=== PATIENT | male | born 1965 | race Caucasian/White ===

== ENCOUNTER 2022-09-28 18:42 | Inpatient (IN) | payer MEDICAID ==
[~2022-09-28] VITALS: Ht 167.6 cm; Wt 84.2 kg
[2022-09-28 20:26] LABS: Basophils # (auto) 0.1 10 ^3/uL (0-0.2); Basophils % (auto) 0.3 % (0.0-2.0); Eosinophils # (auto) 0.1 10 ^3/uL (0-0.8); Eosinophils % (auto) 0.4 % (0.0-7.0); Lymphocytes # (auto) 1.2 10 ^3/uL (0.4-5.4); Lymphocytes % (auto) 7.6 % (10.0-50.0); Mean Corpuscular Hemoglobin 30.2 pg (28.0-32.0); Mean Corpuscular Hgb Conc. 33.4 g/dL (32.0-36.0); Mean Corpuscular Volume 90.6 fL (80.0-100.0); Monocytes % (auto) 6.4 % (0.0-12.0); Neutrophils % (auto) 85.3 % (37.0-80.0); Nucleated Red Blood Cells % 0.2 %; White Blood Cell 16.4 10^3/uL (4.4-10.8)
[2022-09-28 20:40] LABS: INR 1.05 (0.9-1.15); Partial Thromboplastin Time 28.2 sec (24.6-33.4)
[2022-09-28 20:47] LABS: Albumin 3.7 g/dL (3.4-5.0); BUN/Creatinine Ratio 15.6; Calcium 8.6 mg/dL (8.5-10.1); Potassium 4.7 mmol/L (3.5-5.1)
[2022-09-28 20:50] LABS: Bilirubin, Total 0.5 mg/dL (0.2-1.0); Total Protein 6.8 g/dL (6.4-8.2)
[2022-09-29] MEDS ORDERED: MORPHINE SULFATE 4 MG/ML SYR/VIAL IV ONE (01:00)
[2022-09-29] MEDS ORDERED: ONDANSETRON HCL 4 MG/2 ML VIAL IV ONE (01:00)
[2022-09-29] MEDS ORDERED: ENOXAPARIN SOD 100 MG/1 ML SYRINGE SC ONE (01:15)
[2022-09-29] MEDS ORDERED: NITROGLYCERIN 0.4 MG SL TAB SL PRN (01:15)
[2022-09-29] MEDS ORDERED: ONDANSETRON HCL 4 MG/2 ML VIAL IV PRN (01:15)
[2022-09-29] MEDS ORDERED: TEMAZEPAM 15 MG CAP PO PRN (01:15)
[2022-09-29] MEDS ORDERED: IOHEXOL 350 MG/ML 100ML IJ ONE (07:40)
[2022-09-29] MEDS ORDERED: ENOXAPARIN SOD 80 MG/0.8ML SYRINGE SC SCH (10:00)
[2022-09-29] MEDS ORDERED: ASPirin 81 mg TAB PO SCH (10:00)
[2022-09-29] MEDS ORDERED: LISINOPRIL 5 MG TAB PO SCH (10:00)
[2022-09-29] MEDS: PANTOPRAZOLE 40 MG TAB PO SCH (10:42)
[2022-09-29] MEDS: ACETAMINOPHEN 325 MG TAB PO PRN (12:46)
[2022-09-29] MEDS ORDERED: CLOPIDOGREL BISULFATE 75 MG TAB PO ONE (13:15)
[2022-09-29] MEDS: ATORVASTATIN 20 MG TAB PO SCH ×2 (13:40→21:36)
[2022-09-29] MEDS ORDERED: LISINOPRIL 10 MG TAB PO ONE (15:45)
[2022-09-29 21:00] VITALS: BP 131/80
[2022-09-29] MEDS: CARVEDILOL 12.5 MG TAB PO SCH (21:28)
[2022-09-29] MEDS ORDERED: ENOXAPARIN SOD 40 MG/0.4 ML SYRINGE SC SCH (22:00)
[2022-09-29] MEDS ORDERED: APIXABAN 5 MG TAB PO SCH (22:00)
[2022-09-29] MEDS ORDERED: ATORVASTATIN 20 MG TAB PO SCH (22:00)
[2022-09-29 22:09] VITALS: BP 131/80
[2022-09-30] MEDS: HYDROcodone-ACET 10/325MG TAB PO PRN ×3 (00:27→20:28)
[2022-09-30 04:46] VITALS: BP 101/60
[2022-09-30 05:31] LABS: Urine Bacteria FEW /hpf (None Seen); Urine Blood Negative /uL (Negative); Urine Mucus FEW (None Seen); Urine WBC 1 /hpf (0 - 3)
[2022-09-30 05:49] LABS: Amphetamine Screen, Urine NEGATIVE (NEGATIVE); Barbiturate Scree,Urine NEGATIVE (NEGATIVE); Benzodiazephine Screen, Urine NEGATIVE (NEGATIVE); Cannabinoid Screen, Urine NEGATIVE (NEGATIVE); Cocaine Screen, Urine NEGATIVE (NEGATIVE); Opiate Scree,Urine POSITIVE (NEGATIVE); Phencyclidine Screen, Urine NEGATIVE (NEGATIVE)
[2022-09-30 06:04] LABS: Basophils # (auto) 0 10 ^3/uL (0-0.2); Basophils % (auto) 0.1 % (0.0-2.0); Eosinophils # (auto) 0.1 10 ^3/uL (0-0.8); Eosinophils % (auto) 0.5 % (0.0-7.0); Hematocrit 44.6 % (41.0-53.0); Hemoglobin 15.1 g/dL (13.5-17.5); Lymphocytes # (auto) 1.5 10 ^3/uL (0.4-5.4); Lymphocytes % (auto) 9.7 % (10.0-50.0); Mean Corpuscular Hemoglobin 30.8 pg (28.0-32.0); Mean Corpuscular Hgb Conc. 33.8 g/dL (32.0-36.0); Mean Corpuscular Volume 91.1 fL (80.0-100.0); Monocytes # (auto) 1.4 10 ^3/uL (0-1.3); Neutrophils # (auto) 12.3 10 ^3/uL (1.6-8.6); Neutrophils % (auto) 80.7 % (37.0-80.0); Red Cell Distribution Width 14.1 % (11.8-14.3); White Blood Cell 15.3 10^3/uL (4.4-10.8)
[2022-09-30] MEDS: EMPAGLIFLOZIN 10 MG TAB PO SCH (06:13)
[2022-09-30 06:27] LABS: Calcium 8.2 mg/dL (8.5-10.1); Potassium 5.2 mmol/L (3.5-5.1)
[2022-09-30 06:33] LABS: BUN/Creatinine Ratio 17.7
[2022-09-30 09:00] VITALS: BP 107/71
[2022-09-30] MEDS ORDERED: GADOTERATE MEG 10 MMOL/20ml INJ (0.5MMOL/ml) IV ONE (09:47)
[2022-09-30] MEDS ORDERED: ASPirin 81 mg TAB PO SCH (10:00)
[2022-09-30] MEDS ORDERED: CLOPIDOGREL BISULFATE 75 MG TAB PO SCH (10:00)
[2022-09-30] MEDS ORDERED: LISINOPRIL 10 MG TAB PO SCH (10:00)
[2022-09-30] MEDS: PANTOPRAZOLE 40 MG TAB PO SCH (10:07)
[2022-09-30] MEDS: LOSARTAN POTASSIUM 25 MG TAB PO SCH (10:08)
[2022-09-30] MEDS: ENOXAPARIN SOD 100 MG/1 ML SYRINGE SC SCH ×2 (10:09→21:32)
[2022-09-30] MEDS: CARVEDILOL 12.5 MG TAB PO SCH ×2 (10:09→21:32)
[2022-09-30 13:00] VITALS: BP 119/67
[2022-09-30] MEDS ORDERED: SENNA 8.6 MG TAB PO PRN (15:45)
[2022-09-30] MEDS ORDERED: POLYETHYLENE GLYCOL 17 GM PWDR PO PRN (15:45)
[2022-09-30 17:00] VITALS: BP 107/70
[2022-09-30] MEDS: ACETAMINOPHEN 325 MG TAB PO PRN (21:30)
[2022-09-30] MEDS: SENNA 8.6 MG TAB PO SCH (21:31)
[2022-09-30] MEDS: ATORVASTATIN 20 MG TAB PO SCH (21:31)
[2022-09-30 22:00] VITALS: BP 136/76
[2022-10-01 05:00] VITALS: BP 103/71
[2022-10-01 05:39] LABS: Basophils # (auto) 0 10 ^3/uL (0-0.2); Basophils % (auto) 0.3 % (0.0-2.0); Eosinophils # (auto) 0.1 10 ^3/uL (0-0.8); Eosinophils % (auto) 1.1 % (0.0-7.0); Hematocrit 48.4 % (41.0-53.0); Hemoglobin 16.2 g/dL (13.5-17.5); Lymphocytes # (auto) 2.7 10 ^3/uL (0.4-5.4); Lymphocytes % (auto) 19.5 % (10.0-50.0); Mean Corpuscular Hemoglobin 30.8 pg (28.0-32.0); Mean Corpuscular Hgb Conc. 33.4 g/dL (32.0-36.0); Mean Corpuscular Volume 92.3 fL (80.0-100.0); Monocytes # (auto) 1.5 10 ^3/uL (0-1.3); Neutrophils # (auto) 9.4 10 ^3/uL (1.6-8.6); Neutrophils % (auto) 68.1 % (37.0-80.0); Nucleated Red Blood Cells % 0.2 %; Red Blood Cells 5.24 10^6/uL (4.5-5.90); Red Cell Distribution Width 14.1 % (11.8-14.3); White Blood Cell 13.7 10^3/uL (4.4-10.8)
[2022-10-01 05:52] LABS: Potassium 4.6 mmol/L (3.5-5.1)
[2022-10-01 05:58] LABS: BUN/Creatinine Ratio 17.6; Calcium 8.4 mg/dL (8.5-10.1)
[2022-10-01] MEDS: EMPAGLIFLOZIN 10 MG TAB PO SCH (06:33)
[2022-10-01] MEDS: HYDROcodone-ACET 10/325MG TAB PO PRN ×2 (06:34→10:48)
[2022-10-01 08:00] VITALS: BP 116/75
[2022-10-01 08:37] VITALS: BP 116/75
[2022-10-01] MEDS: ENOXAPARIN SOD 100 MG/1 ML SYRINGE SC SCH ×2 (10:47→22:05)
[2022-10-01] MEDS: CARVEDILOL 12.5 MG TAB PO SCH ×2 (10:48→22:05)
[2022-10-01] MEDS: PANTOPRAZOLE 40 MG TAB PO SCH (10:49)
[2022-10-01] MEDS: POLYETHYLENE GLYCOL 17 GM PWDR PO SCH (10:49)
[2022-10-01] MEDS: LOSARTAN POTASSIUM 25 MG TAB PO SCH (10:49)
[2022-10-01 17:00] VITALS: BP 120/81
[2022-10-01] MEDS: ACETAMINOPHEN 325 MG TAB PO PRN (21:36)
[2022-10-01 22:00] VITALS: BP 122/77
[2022-10-01] MEDS: SENNA 8.6 MG TAB PO SCH (22:00)
[2022-10-01] MEDS: ATORVASTATIN 20 MG TAB PO SCH (22:05)
[2022-10-02 05:00] VITALS: BP 109/73
[2022-10-02] MEDS: EMPAGLIFLOZIN 10 MG TAB PO SCH (06:46)
[2022-10-02 07:17] LABS: Basophils # (auto) 0.1 10 ^3/uL (0-0.2); Basophils % (auto) 0.4 % (0.0-2.0); Eosinophils # (auto) 0.2 10 ^3/uL (0-0.8); Eosinophils % (auto) 1.1 % (0.0-7.0); Hematocrit 48.2 % (41.0-53.0); Hemoglobin 16.2 g/dL (13.5-17.5); Lymphocytes # (auto) 1.9 10 ^3/uL (0.4-5.4); Lymphocytes % (auto) 12.8 % (10.0-50.0); Mean Corpuscular Hemoglobin 30.4 pg (28.0-32.0); Mean Corpuscular Hgb Conc. 33.7 g/dL (32.0-36.0); Mean Corpuscular Volume 90.2 fL (80.0-100.0); Monocytes # (auto) 1.7 10 ^3/uL (0-1.3); Monocytes % (auto) 11.6 % (0.0-12.0); Neutrophils # (auto) 10.8 10 ^3/uL (1.6-8.6); Neutrophils % (auto) 74.1 % (37.0-80.0); Red Blood Cells 5.34 10^6/uL (4.5-5.90); White Blood Cell 14.5 10^3/uL (4.4-10.8)
[2022-10-02 07:21] LABS: Potassium 4.7 mmol/L (3.5-5.1)
[2022-10-02 07:37] LABS: BUN/Creatinine Ratio 18.9; Calcium 8.6 mg/dL (8.5-10.1)
[2022-10-02 08:00] VITALS: BP 109/72
[2022-10-02] MEDS: CARVEDILOL 12.5 MG TAB PO SCH ×2 (11:44→20:54)
[2022-10-02] MEDS: LOSARTAN POTASSIUM 25 MG TAB PO SCH (11:45)
[2022-10-02] MEDS: POLYETHYLENE GLYCOL 17 GM PWDR PO SCH (11:45)
[2022-10-02] MEDS: PANTOPRAZOLE 40 MG TAB PO SCH (11:46)
[2022-10-02] MEDS: ENOXAPARIN SOD 100 MG/1 ML SYRINGE SC SCH ×2 (11:46→22:49)
[2022-10-02 12:00] VITALS: BP 110/67
[2022-10-02] MEDS ORDERED: LORazepam 2MG/ML-1ML VIAL IV PRN (13:15)
[2022-10-02] MEDS ORDERED: NIFEdipine ER 30 MG TAB PO SCH (13:15)
[2022-10-02 16:00] VITALS: BP 104/56
[2022-10-02] MEDS: HYDROcodone-ACET 10/325MG TAB PO PRN (19:36)
[2022-10-02 22:00] VITALS: BP 101/63
[2022-10-02] MEDS: ATORVASTATIN 20 MG TAB PO SCH (22:49)
[2022-10-02] MEDS: SENNA 8.6 MG TAB PO SCH (22:49)
[2022-10-03 05:00] VITALS: BP 106/68
[2022-10-03 05:28] LABS: Basophils # (auto) 0.1 10 ^3/uL (0-0.2); Basophils % (auto) 0.5 % (0.0-2.0); Eosinophils # (auto) 0.2 10 ^3/uL (0-0.8); Eosinophils % (auto) 1.8 % (0.0-7.0); Hematocrit 45.2 % (41.0-53.0); Lymphocytes # (auto) 2.1 10 ^3/uL (0.4-5.4); Mean Corpuscular Hgb Conc. 33.2 g/dL (32.0-36.0); Mean Corpuscular Volume 90.3 fL (80.0-100.0); Monocytes # (auto) 1.5 10 ^3/uL (0-1.3); Monocytes % (auto) 11.5 % (0.0-12.0); Neutrophils # (auto) 8.8 10 ^3/uL (1.6-8.6); Neutrophils % (auto) 69.2 % (37.0-80.0); Nucleated Red Blood Cells % 0.1 %; Red Blood Cells 5.01 10^6/uL (4.5-5.90); Red Cell Distribution Width 13.9 % (11.8-14.3); White Blood Cell 12.6 10^3/uL (4.4-10.8)
[2022-10-03 05:43] LABS: BUN/Creatinine Ratio 20.3; Calcium 8.4 mg/dL (8.5-10.1); INR 1.11 (0.9-1.15); Partial Thromboplastin Time 40.4 sec (24.6-33.4); Potassium 4.8 mmol/L (3.5-5.1)
[2022-10-03] MEDS: EMPAGLIFLOZIN 10 MG TAB PO SCH (07:00)
[2022-10-03 08:00] VITALS: BP 114/68
[2022-10-03 08:15] VITALS: BP 114/68
[2022-10-03] MEDS: CARVEDILOL 12.5 MG TAB PO SCH ×2 (10:00→22:18)
[2022-10-03] MEDS: PANTOPRAZOLE 40 MG TAB PO SCH (10:00)
[2022-10-03] MEDS: LOSARTAN POTASSIUM 25 MG TAB PO SCH (10:00)
[2022-10-03] MEDS: POLYETHYLENE GLYCOL 17 GM PWDR PO SCH (10:00)
[2022-10-03 12:00] VITALS: BP 116/74
[2022-10-03] MEDS ORDERED: HEPARIN SODIUM (PORCINE) 5000 UNITS/ML 1ML VIAL IV ONE (12:00)
[2022-10-03] MEDS: MORPHINE SULFATE INJ 2 MG/ml SYRG IV PRN (14:33)
[2022-10-03 16:00] VITALS: BP 115/87
[2022-10-03] MEDS: HEPARIN DRIP/D5W 100UNITS/ML 250 ML IV SCH (18:23)
[2022-10-03 22:00] VITALS: BP 116/77
[2022-10-03] MEDS: SENNA 8.6 MG TAB PO SCH (22:00)
[2022-10-03] MEDS: ATORVASTATIN 20 MG TAB PO SCH (22:18)
[2022-10-04 00:48] LABS: INR 1.12 (0.9-1.15)
[2022-10-04 00:56] LABS: Partial Thromboplastin Time 74.7 sec (24.6-33.4)
[2022-10-04] MEDS: HEPARIN DRIP/D5W 100UNITS/ML 250 ML IV SCH ×3 (00:57→16:50)
[2022-10-04 05:00] VITALS: BP 120/57
[2022-10-04] MEDS: EMPAGLIFLOZIN 10 MG TAB PO SCH (05:24)
[2022-10-04 05:40] LABS: Basophils # (auto) 0.1 10 ^3/uL (0-0.2); Basophils % (auto) 0.5 % (0.0-2.0); Eosinophils # (auto) 0.3 10 ^3/uL (0-0.8); Eosinophils % (auto) 1.9 % (0.0-7.0); Hematocrit 45.7 % (41.0-53.0); Hemoglobin 15.4 g/dL (13.5-17.5); Lymphocytes % (auto) 14.9 % (10.0-50.0); Mean Corpuscular Hemoglobin 30.3 pg (28.0-32.0); Mean Corpuscular Hgb Conc. 33.8 g/dL (32.0-36.0); Mean Corpuscular Volume 89.8 fL (80.0-100.0); Monocytes # (auto) 1.4 10 ^3/uL (0-1.3); Monocytes % (auto) 10.3 % (0.0-12.0); Neutrophils # (auto) 9.6 10 ^3/uL (1.6-8.6); Neutrophils % (auto) 72.4 % (37.0-80.0); Nucleated Red Blood Cells % 0.1 %; Red Blood Cells 5.08 10^6/uL (4.5-5.90); Red Cell Distribution Width 13.8 % (11.8-14.3); White Blood Cell 13.2 10^3/uL (4.4-10.8)
[2022-10-04 05:51] LABS: INR 1.11 (0.9-1.15); Partial Thromboplastin Time 59.2 sec (24.6-33.4)
[2022-10-04 05:57] LABS: Calcium 8.7 mg/dL (8.5-10.1); Potassium 5.2 mmol/L (3.5-5.1)
[2022-10-04 06:04] LABS: BUN/Creatinine Ratio 19.5
[2022-10-04 07:48] VITALS: BP 109/70
[2022-10-04 09:00] VITALS: BP 109/70
[2022-10-04] MEDS: CARVEDILOL 12.5 MG TAB PO SCH ×2 (10:47→21:12)
[2022-10-04] MEDS: PANTOPRAZOLE 40 MG TAB PO SCH (10:47)
[2022-10-04] MEDS: POLYETHYLENE GLYCOL 17 GM PWDR PO SCH (10:47)
[2022-10-04] MEDS: LOSARTAN POTASSIUM 25 MG TAB PO SCH (10:49)
[2022-10-04 12:05] LABS: INR 1.14 (0.9-1.15)
[2022-10-04 12:11] LABS: Partial Thromboplastin Time 82.4 sec (24.6-33.4)
[2022-10-04 13:00] VITALS: BP 123/78
[2022-10-04 17:00] VITALS: BP 123/79
[2022-10-04 20:48] LABS: INR 1.11 (0.9-1.15)
[2022-10-04 20:56] LABS: Partial Thromboplastin Time 74.9 sec (24.6-33.4)
[2022-10-04] MEDS: ATORVASTATIN 20 MG TAB PO SCH (21:10)
[2022-10-04] MEDS: SENNA 8.6 MG TAB PO SCH (21:10)
[2022-10-04 22:00] VITALS: BP 118/73
[2022-10-04] MEDS: HYDROcodone-ACET 10/325MG TAB PO PRN (22:07)
[2022-10-05 03:49] LABS: Basophils # (auto) 0.1 10 ^3/uL (0-0.2); Basophils % (auto) 0.8 % (0.0-2.0); Eosinophils # (auto) 0.3 10 ^3/uL (0-0.8); Eosinophils % (auto) 2.7 % (0.0-7.0); Hematocrit 47.1 % (41.0-53.0); Hemoglobin 15.5 g/dL (13.5-17.5); Lymphocytes # (auto) 2.5 10 ^3/uL (0.4-5.4); Lymphocytes % (auto) 20.2 % (10.0-50.0); Mean Corpuscular Hemoglobin 29.7 pg (28.0-32.0); Mean Corpuscular Hgb Conc. 32.8 g/dL (32.0-36.0); Mean Corpuscular Volume 90.4 fL (80.0-100.0); Monocytes # (auto) 1.1 10 ^3/uL (0-1.3); Neutrophils # (auto) 8.2 10 ^3/uL (1.6-8.6); Neutrophils % (auto) 67.3 % (37.0-80.0); Red Blood Cells 5.21 10^6/uL (4.5-5.90); Red Cell Distribution Width 13.7 % (11.8-14.3); White Blood Cell 12.2 10^3/uL (4.4-10.8)
[2022-10-05 03:59] LABS: Calcium 8.6 mg/dL (8.5-10.1); Potassium 5.1 mmol/L (3.5-5.1)
[2022-10-05 04:01] LABS: BUN/Creatinine Ratio 17.9
[2022-10-05 04:07] LABS: INR 1.12 (0.9-1.15)
[2022-10-05 04:10] LABS: Partial Thromboplastin Time 83.4 sec (24.6-33.4)
[2022-10-05] MEDS: HEPARIN DRIP/D5W 100UNITS/ML 250 ML IV SCH ×2 (04:10→06:05)
[2022-10-05 05:00] VITALS: BP 105/64
[2022-10-05] MEDS: EMPAGLIFLOZIN 10 MG TAB PO SCH (06:05)
[2022-10-05 07:45] VITALS: BP 119/74
[2022-10-05 09:00] VITALS: BP 119/74
[2022-10-05 13:00] VITALS: BP 114/74
[2022-10-05] MEDS: PANTOPRAZOLE 40 MG TAB PO SCH (13:01)
[2022-10-05] MEDS: CARVEDILOL 12.5 MG TAB PO SCH ×2 (13:01→21:28)
[2022-10-05] MEDS: LOSARTAN POTASSIUM 25 MG TAB PO SCH (13:02)
[2022-10-05] MEDS: POLYETHYLENE GLYCOL 17 GM PWDR PO SCH (13:03)
[2022-10-05 13:12] LABS: INR 1.11 (0.9-1.15)
[2022-10-05] MEDS ORDERED: HEPARIN DRIP/D5W 100UNITS/ML 250 ML IV SCH (14:00)
[2022-10-05] MEDS: MORPHINE SULFATE INJ 2 MG/ml SYRG IV PRN ×2 (14:03→16:09)
[2022-10-05 17:00] VITALS: BP 114/76
[2022-10-05 20:34] LABS: INR 1.14 (0.9-1.15); Partial Thromboplastin Time 50.1 sec (24.6-33.4)
[2022-10-05] MEDS: ATORVASTATIN 20 MG TAB PO SCH (21:26)
[2022-10-05] MEDS: SENNA 8.6 MG TAB PO SCH (21:27)
[2022-10-05 21:55] VITALS: BP 108/69
[2022-10-06] VITALS (10 sets, daily range): BP systolic 91–116; BP diastolic 59–76
[2022-10-06 02:44] LABS: INR 1.13 (0.9-1.15); Partial Thromboplastin Time 54.2 sec (24.6-33.4)
[2022-10-06] MEDS: EMPAGLIFLOZIN 10 MG TAB PO SCH (06:24)
[2022-10-06 08:45] LABS: INR 1.13 (0.9-1.15); Partial Thromboplastin Time 51.8 sec (24.6-33.4)
[2022-10-06] MEDS: POLYETHYLENE GLYCOL 17 GM PWDR PO SCH (10:00)
[2022-10-06] MEDS: CARVEDILOL 12.5 MG TAB PO SCH ×2 (11:40→23:12)
[2022-10-06] MEDS: PANTOPRAZOLE 40 MG TAB PO SCH (11:40)
[2022-10-06] MEDS: LOSARTAN POTASSIUM 25 MG TAB PO SCH (11:41)
[2022-10-06] MEDS ORDERED: fentaNYL CITRATE 100 MCG/2 ML VL ONE ×2 (14:05→15:11)
[2022-10-06] MEDS ORDERED: ANGIOMAX 250 MG VIAL IV ONE (14:05)
[2022-10-06] MEDS ORDERED: SODIUM CHL 0.9% 50 ML ONE (14:06)
[2022-10-06] MEDS ORDERED: MIDAZOLAM HCL 2MG/2ML 2ml VIAL (1mg/ml) ONE ×2 (14:06→15:11)
[2022-10-06] MEDS ORDERED: VERAPAMIL 2.5MG/ML INJ 2ML VIAL IV ONE (14:11)
[2022-10-06] MEDS ORDERED: HEPARIN SODIUM (PORCINE) 5000 UNITS/ML 1ML VIAL ONE ×2 (14:11→14:40)
[2022-10-06] MEDS ORDERED: IODIXANOL 320MG/ML 100ML BTL IV ONE ×2 (14:44→15:04)
[2022-10-06] MEDS ORDERED: CLOPIDOGREL 300 MG TAB ONE (15:05)
[2022-10-06] MEDS ORDERED: NITROGLYCERIN 0.4MG/DOSE SPRAY 4.9GM ONE (15:14)
[2022-10-06] MEDS: MORPHINE SULFATE INJ 2 MG/ml SYRG IV PRN (16:07)
[2022-10-06] MEDS ORDERED: RIVAROXABAN 20 MG TAB PO ONE (17:00)
[2022-10-06] MEDS ORDERED: APIXABAN 5 MG TAB PO SCH (22:00)
[2022-10-06] MEDS: SENNA 8.6 MG TAB PO SCH (23:00)
[2022-10-06] MEDS: ATORVASTATIN 20 MG TAB PO SCH (23:00)
[2022-10-07 05:00] VITALS: BP 117/73
[2022-10-07 05:58] LABS: Basophils # (auto) 0 10 ^3/uL (0-0.2); Basophils % (auto) 0.2 % (0.0-2.0); Eosinophils # (auto) 0.2 10 ^3/uL (0-0.8); Eosinophils % (auto) 1.2 % (0.0-7.0); Hematocrit 48.4 % (41.0-53.0); Hemoglobin 15.9 g/dL (13.5-17.5); Lymphocytes # (auto) 1.6 10 ^3/uL (0.4-5.4); Lymphocytes % (auto) 10.5 % (10.0-50.0); Mean Corpuscular Hemoglobin 29.4 pg (28.0-32.0); Mean Corpuscular Hgb Conc. 32.8 g/dL (32.0-36.0); Mean Corpuscular Volume 89.6 fL (80.0-100.0); Monocytes # (auto) 1.2 10 ^3/uL (0-1.3); Neutrophils # (auto) 12.2 10 ^3/uL (1.6-8.6); Neutrophils % (auto) 80.1 % (37.0-80.0); Nucleated Red Blood Cells % 0.1 %; Red Cell Distribution Width 13.8 % (11.8-14.3); White Blood Cell 15.2 10^3/uL (4.4-10.8)
[2022-10-07] MEDS: EMPAGLIFLOZIN 10 MG TAB PO SCH (06:59)
[2022-10-07 09:00] VITALS: BP 120/81
[2022-10-07] MEDS: POLYETHYLENE GLYCOL 17 GM PWDR PO SCH (10:00)
[2022-10-07] MEDS: PANTOPRAZOLE 40 MG TAB PO SCH (12:04)
[2022-10-07] MEDS: CLOPIDOGREL BISULFATE 75 MG TAB PO SCH (12:05)
[2022-10-07] MEDS: CARVEDILOL 12.5 MG TAB PO SCH ×2 (12:06→21:30)
[2022-10-07] MEDS: ASPirin 81 mg TAB PO SCH (12:07)
[2022-10-07] MEDS: LOSARTAN POTASSIUM 25 MG TAB PO SCH (12:07)
[2022-10-07] MEDS ORDERED: LOS25T PO (12:37)
[2022-10-07] MEDS ORDERED: CAR125T PO (12:37)
[2022-10-07] MEDS ORDERED: CLOP75TA70 PO (12:37)
[2022-10-07] MEDS ORDERED: PANT40T PO (12:37)
[2022-10-07] MEDS ORDERED: RIV20T PO (12:37)
[2022-10-07] MEDS ORDERED: ATOR20TA50 PO (12:37)
[2022-10-07] MEDS ORDERED: ASPI-325 PO (12:37)
[2022-10-07 13:00] VITALS: BP 120/87
[2022-10-07 15:44] VITALS: BP 120/81
[2022-10-07 17:00] VITALS: BP 114/77
[2022-10-07] MEDS: SENNA 8.6 MG TAB PO SCH (21:30)
[2022-10-07] MEDS: ATORVASTATIN 20 MG TAB PO SCH (21:31)
[2022-10-07 22:00] VITALS: BP 111/73
[2022-10-08] VITALS (7 sets, daily range): BP systolic 108–125; BP diastolic 64–85
[2022-10-08] MEDS: EMPAGLIFLOZIN 10 MG TAB PO SCH (06:42)
[2022-10-08] MEDS: POLYETHYLENE GLYCOL 17 GM PWDR PO SCH (10:00)
[2022-10-08] MEDS: ASPirin 81 mg TAB PO SCH (10:17)
[2022-10-08] MEDS: PANTOPRAZOLE 40 MG TAB PO SCH (10:17)
[2022-10-08] MEDS: CARVEDILOL 12.5 MG TAB PO SCH ×2 (10:18→22:01)
[2022-10-08] MEDS: CLOPIDOGREL BISULFATE 75 MG TAB PO SCH (10:18)
[2022-10-08] MEDS: LOSARTAN POTASSIUM 25 MG TAB PO SCH (10:19)
[2022-10-08] MEDS: SENNA 8.6 MG TAB PO SCH (22:00)
[2022-10-08] MEDS: ATORVASTATIN 20 MG TAB PO SCH (22:01)
[2022-10-09 05:00] VITALS: BP 98/62
[2022-10-09] MEDS: EMPAGLIFLOZIN 10 MG TAB PO SCH (07:15)
[2022-10-09 08:00] VITALS: BP 116/71
[2022-10-09 09:00] VITALS: BP 116/71
[2022-10-09] MEDS: CARVEDILOL 12.5 MG TAB PO SCH ×2 (09:08→22:11)
[2022-10-09] MEDS: ASPirin 81 mg TAB PO SCH (09:08)
[2022-10-09] MEDS: CLOPIDOGREL BISULFATE 75 MG TAB PO SCH (09:09)
[2022-10-09] MEDS: LOSARTAN POTASSIUM 25 MG TAB PO SCH (09:09)
[2022-10-09] MEDS: PANTOPRAZOLE 40 MG TAB PO SCH (09:09)
[2022-10-09] MEDS: POLYETHYLENE GLYCOL 17 GM PWDR PO SCH (10:00)
[2022-10-09 12:30] VITALS: BP 131/74
[2022-10-09 17:18] VITALS: BP 97/70
[2022-10-09 22:00] VITALS: BP 104/68
[2022-10-09] MEDS: ATORVASTATIN 20 MG TAB PO SCH (22:12)
[2022-10-09] MEDS: SENNA 8.6 MG TAB PO SCH (22:12)
[2022-10-10 05:00] VITALS: BP 114/70
[2022-10-10] MEDS: EMPAGLIFLOZIN 10 MG TAB PO SCH (06:41)
[2022-10-10 08:30] VITALS: BP 102/72
[2022-10-10] MEDS: CLOPIDOGREL BISULFATE 75 MG TAB PO SCH (10:13)
[2022-10-10] MEDS: PANTOPRAZOLE 40 MG TAB PO SCH (10:13)
[2022-10-10] MEDS: ASPirin 81 mg TAB PO SCH (10:13)
[2022-10-10] MEDS: POLYETHYLENE GLYCOL 17 GM PWDR PO SCH (10:13)
[2022-10-10] MEDS: CARVEDILOL 12.5 MG TAB PO SCH (10:15)
[2022-10-10] MEDS: LOSARTAN POTASSIUM 25 MG TAB PO SCH (10:15)
[2022-10-10 12:54] VITALS: BP 104/68
[2022-10-10] MEDS ORDERED: RIV20T PO ×2 (13:58)
[2022-10-10] MEDS ORDERED: CLOP75TA28 PO (13:58)
[2022-10-10] MEDS ORDERED: ATOR20TA50 PO (13:58)
[2022-10-10] MEDS ORDERED: ASPI1TAB19 PO (13:58)
[2022-10-10] MEDS ORDERED: LISI-275 PO (13:58)
[2022-10-10] MEDS ORDERED: PANT40T PO (13:58)
[2022-10-10] MEDS ORDERED: CAR125T PO (13:58)
[2022-10-10 16:56] VITALS: BP 100/60
[2022-10-10] MEDS ORDERED: CARVEDILOL 12.5 MG TAB PO SCH (22:00)
[2022-10-11] MEDS ORDERED: LISINOPRIL 5 MG TAB PO SCH (10:00)
== END 2022-10-10 18:17 | disposition home or self-care (01) | DRG 246 ==
LOC: ER 18:42 → EDBD 18:42 → TELE 09-29 01:15 → TELE-EAST 09-29 20:50
PROVIDERS: ADMIT Nurse Practitioner; ATTEND Student in an Organized Health Care Education/Training Program
PROC: 027236Z Dilation of Coronary Artery, Three Arteries with Three Drug-eluting Intraluminal Devices, Percutaneous Approach (ICD-10-PCS; principal; 2022-10-06)
PROC: 4A023N7 Measurement of Cardiac Sampling and Pressure, Left Heart, Percutaneous Approach (ICD-10-PCS; 2022-10-06)
PROC: B211YZZ Fluoroscopy of Multiple Coronary Arteries using Other Contrast (ICD-10-PCS; 2022-10-06)
PROC: B215YZZ Fluoroscopy of Left Heart using Other Contrast (ICD-10-PCS; 2022-10-06)
PROC: 4A033BC Measurement of Arterial Pressure, Coronary, Percutaneous Approach (ICD-10-PCS; 2022-10-06)
DX: I13.0 Hypertensive heart and chronic kidney disease with heart failure and stage 1 through stage 4 chronic kidney disease, or unspecified chronic kidney disease (principal); I21.A1 Myocardial infarction type 2; I26.99 Other pulmonary embolism without acute cor pulmonale; I82.432 Acute embolism and thrombosis of left popliteal vein; I50.20 Unspecified systolic (congestive) heart failure; I82.412 Acute embolism and thrombosis of left femoral vein; M19.90 Unspecified osteoarthritis, unspecified site; K42.9 Umbilical hernia without obstruction or gangrene; E78.5 Hyperlipidemia, unspecified; R73.03 Prediabetes; R00.1 Bradycardia, unspecified; E66.9 Obesity, unspecified; M10.9 Gout, unspecified; I25.10 Atherosclerotic heart disease of native coronary artery without angina pectoris; Z20.822 Contact with and (suspected) exposure to COVID-19; R79.89 Other specified abnormal findings of blood chemistry; N18.9 Chronic kidney disease, unspecified; Z80.0 Family history of malignant neoplasm of digestive organs; J44.9 Chronic obstructive pulmonary disease, unspecified; Z63.4 Disappearance and death of family member; Z82.49 Family history of ischemic heart disease and other diseases of the circulatory system; Z80.9 Family history of malignant neoplasm, unspecified; Z86.711 Personal history of pulmonary embolism; Z86.718 Personal history of other venous thrombosis and embolism; Z68.30 Body mass index [BMI] 30.0-30.9, adult
CPT/HCPCS: 36415; 71045; 71275; 72195; 74176; 74181; 80048; 80053; 80061; 80307; 81001; 81241; 82565; 83036; 83605; 83880; 84443; 84484; 84520; 85025; 85379; 85610; 85730; 86850; 86900; 86901; 87426; 92928; 92929; 93005; 93306; 93458; 93571; 93970; 93971; 96372; 96374; 96375; 99152; 99153; C1874; G0378; J2250; J2405; Q9967

== ENCOUNTER 2022-11-16 05:43 | Inpatient (IN) | payer MEDICAID ==
[~2022-11-16] VITALS: Ht 175.3 cm; Wt 90.0 kg
[~2022-11-16 05:43] MED LIST: ASPI-325 PO; ASPI1TAB19 PO; ATOR20TA50 PO; CAR125T PO; CLOP75TA28 PO; CLOP75TA70 PO; LISI-275 PO; LOS25T PO; PANT40T PO; RIV20T PO
[2022-11-16] MEDS ORDERED: ONDANSETRON HCL 4 MG/2 ML VIAL IV ONE (07:00)
[2022-11-16] MEDS ORDERED: SODIUM CHLORIDE 0.9% 1,000 ML IV ONE ×2 (07:00)
[2022-11-16] MEDS ORDERED: MORPHINE SULFATE 4 MG/ML SYR/VIAL IV ONE (07:00)
[2022-11-16 07:12] LABS: Basophils # (auto) 0.1 10 ^3/uL (0-0.2); Basophils % (auto) 0.5 % (0.0-2.0); Eosinophils # (auto) 0.1 10 ^3/uL (0-0.8); Eosinophils % (auto) 0.6 % (0.0-7.0); Hematocrit 50.1 % (41.0-53.0); Hemoglobin 16.4 g/dL (13.5-17.5); Lymphocytes # (auto) 1.2 10 ^3/uL (0.4-5.4); Lymphocytes % (auto) 8.4 % (10.0-50.0); Mean Corpuscular Hemoglobin 29.9 pg (28.0-32.0); Mean Corpuscular Hgb Conc. 32.7 g/dL (32.0-36.0); Mean Corpuscular Volume 91.4 fL (80.0-100.0); Monocytes # (auto) 0.8 10 ^3/uL (0-1.3); Monocytes % (auto) 5.9 % (0.0-12.0); Neutrophils # (auto) 12.1 10 ^3/uL (1.6-8.6); Neutrophils % (auto) 84.6 % (37.0-80.0); Red Blood Cells 5.48 10^6/uL (4.5-5.90); Red Cell Distribution Width 14.2 % (11.8-14.3); White Blood Cell 14.3 10^3/uL (4.4-10.8)
[2022-11-16 07:31] LABS: Albumin 4.1 g/dL (3.4-5.0); Calcium 8.7 mg/dL (8.5-10.1); Potassium 4.9 mmol/L (3.5-5.1)
[2022-11-16 07:32] LABS: INR 1.05 (0.9-1.15); Partial Thromboplastin Time 25.5 sec (24.6-33.4)
[2022-11-16 07:34] LABS: BUN/Creatinine Ratio 13.8; Bilirubin, Total 0.4 mg/dL (0.2-1.0); Total Protein 7.2 g/dL (6.4-8.2)
[2022-11-16] MEDS ORDERED: ONDANSETRON HCL 4 MG/2 ML VIAL IV PRN (09:15)
[2022-11-16] MEDS ORDERED: MORPHINE SULFATE INJ 2 MG/ml SYRG IV PRN (09:15)
[2022-11-16] MEDS ORDERED: DOCUSATE SOD 100 MG CAP PO PRN (09:15)
[2022-11-16] MEDS ORDERED: RIVAROXABAN 20 MG TAB PO SCH (10:00)
[2022-11-16] MEDS ORDERED: LOSARTAN POTASSIUM 25 MG TAB PO SCH (10:00)
[2022-11-16] MEDS ORDERED: LISINOPRIL 5 MG TAB PO SCH (10:00)
[2022-11-16] MEDS: PANTOPRAZOLE 40 MG TAB PO SCH (11:14)
[2022-11-16] MEDS: ATORVASTATIN 20 MG TAB PO SCH (11:14)
[2022-11-16] MEDS: ASPirin-EC 81 mg tab PO SCH (11:14)
[2022-11-16] MEDS: SODIUM CHLORIDE 0.9% 1,000 ML IV SCH ×2 (11:14→18:49)
[2022-11-16 11:37] LABS: Lactic Acid w/Reflex 2.2 mmol/L (0.4-2.0)
[2022-11-16] MEDS: metroNIDAZOLE 500MG/100ML 100 ML IV SCH ×2 (16:04→23:43)
[2022-11-17] MEDS: SODIUM CHLORIDE 0.9% 1,000 ML IV SCH ×3 (02:35→18:35)
[2022-11-17 06:16] LABS: Basophils # (auto) 0 10 ^3/uL (0-0.2); Basophils % (auto) 0.4 % (0.0-2.0); Eosinophils # (auto) 0.2 10 ^3/uL (0-0.8); Eosinophils % (auto) 2.3 % (0.0-7.0); Hematocrit 45.2 % (41.0-53.0); Hemoglobin 14.7 g/dL (13.5-17.5); Lymphocytes # (auto) 1.5 10 ^3/uL (0.4-5.4); Lymphocytes % (auto) 18.5 % (10.0-50.0); Mean Corpuscular Hemoglobin 29.9 pg (28.0-32.0); Mean Corpuscular Hgb Conc. 32.7 g/dL (32.0-36.0); Mean Corpuscular Volume 91.5 fL (80.0-100.0); Monocytes # (auto) 0.7 10 ^3/uL (0-1.3); Neutrophils # (auto) 5.6 10 ^3/uL (1.6-8.6); Neutrophils % (auto) 69.8 % (37.0-80.0); Nucleated Red Blood Cells % 0.1 %; Red Blood Cells 4.94 10^6/uL (4.5-5.90); Red Cell Distribution Width 14.5 % (11.8-14.3); White Blood Cell 8.1 10^3/uL (4.4-10.8)
[2022-11-17] MEDS: metroNIDAZOLE 500MG/100ML 100 ML IV SCH ×2 (06:24→14:58)
[2022-11-17 06:35] LABS: Potassium 4.1 mmol/L (3.5-5.1)
[2022-11-17 06:47] LABS: Albumin 3.4 g/dL (3.4-5.0); BUN/Creatinine Ratio 11.5; Bilirubin, Total 0.8 mg/dL (0.2-1.0)
[2022-11-17] MEDS ORDERED: CLOPIDOGREL 300 MG TAB PO ONE (08:00)
[2022-11-17] MEDS ORDERED: cefTRIAXone 1GM/50ML D5W 50 ML IV SCH (09:00)
[2022-11-17] MEDS ORDERED: SACUBITRIL-VALSARTAN 24mg/26mg TAB PO SCH (10:00)
[2022-11-17] MEDS: ASPirin-EC 81 mg tab PO SCH (10:14)
[2022-11-17] MEDS: PANTOPRAZOLE 40 MG TAB PO SCH (10:14)
[2022-11-17] MEDS: ATORVASTATIN 20 MG TAB PO SCH (10:15)
[2022-11-17] MEDS: CLOPIDOGREL BISULFATE 75 MG TAB PO SCH (10:15)
[2022-11-17] MEDS: ENOXAPARIN SOD 100 MG/1 ML SYRINGE SC SCH ×2 (10:25→21:44)
[2022-11-17 19:44] VITALS: BP 145/92
[2022-11-17] MEDS: SACUBITRIL-VALSARTAN 24mg/26mg TAB PO SCH (21:44)
[2022-11-17 22:00] VITALS: BP 143/92
[2022-11-17 23:47] LABS: Urine Bacteria NONE SEEN /hpf (None Seen); Urine Blood Negative /uL (Negative); Urine Specific Gravity 1.007 (1.001-1.035); Urine Sperm PRESENT /hpf (None Seen); Urine WBC <1 /hpf (0 - 3)
[2022-11-18 05:00] VITALS: BP 106/64
[2022-11-18] MEDS: EMPAGLIFLOZIN 10 MG TAB PO SCH (06:22)
[2022-11-18 09:00] VITALS: BP 118/74
[2022-11-18] MEDS: ATORVASTATIN 20 MG TAB PO SCH (09:57)
[2022-11-18] MEDS: ASPirin-EC 81 mg tab PO SCH (09:57)
[2022-11-18] MEDS: SODIUM CHLORIDE 0.9% 1,000 ML IV SCH ×3 (09:57→19:35)
[2022-11-18] MEDS: ENOXAPARIN SOD 100 MG/1 ML SYRINGE SC SCH ×2 (09:58→22:17)
[2022-11-18] MEDS: SACUBITRIL-VALSARTAN 24mg/26mg TAB PO SCH ×2 (09:58→22:16)
[2022-11-18] MEDS: CLOPIDOGREL BISULFATE 75 MG TAB PO SCH (09:58)
[2022-11-18 13:00] VITALS: BP 110/76
[2022-11-18 17:00] VITALS: BP 117/89
[2022-11-18] MEDS ORDERED: CLOP75TA70 PO (18:16)
[2022-11-18] MEDS ORDERED: RIV20T PO (18:16)
[2022-11-18] MEDS ORDERED: EMPA1TAB PO (18:16)
[2022-11-18] MEDS ORDERED: SACU1TAB PO (18:16)
[2022-11-18] MEDS ORDERED: CAR125T PO (18:16)
[2022-11-18] MEDS ORDERED: ATOR20TA50 PO (18:16)
[2022-11-18 22:00] VITALS: BP 113/70
[2022-11-19] VITALS (7 sets, daily range): BP systolic 105–120; BP diastolic 69–77
[2022-11-19] MEDS: SODIUM CHLORIDE 0.9% 1,000 ML IV SCH ×2 (03:55→12:51)
[2022-11-19] MEDS: EMPAGLIFLOZIN 10 MG TAB PO SCH (06:27)
[2022-11-19] MEDS: ASPirin-EC 81 mg tab PO SCH (09:48)
[2022-11-19] MEDS: CLOPIDOGREL BISULFATE 75 MG TAB PO SCH (09:48)
[2022-11-19] MEDS: ATORVASTATIN 20 MG TAB PO SCH (09:48)
[2022-11-19] MEDS: SACUBITRIL-VALSARTAN 24mg/26mg TAB PO SCH ×2 (09:48→21:11)
[2022-11-19] MEDS: ENOXAPARIN SOD 100 MG/1 ML SYRINGE SC SCH ×2 (09:48→21:11)
[2022-11-20] MEDS: SODIUM CHLORIDE 0.9% 1,000 ML IV SCH ×3 (02:19→11:13)
[2022-11-20 05:00] VITALS: BP 121/67
[2022-11-20] MEDS: EMPAGLIFLOZIN 10 MG TAB PO SCH (06:17)
[2022-11-20 08:00] VITALS: BP 121/75
[2022-11-20 09:00] VITALS: BP 121/75
[2022-11-20] MEDS: ASPirin-EC 81 mg tab PO SCH (09:09)
[2022-11-20] MEDS: CLOPIDOGREL BISULFATE 75 MG TAB PO SCH (09:09)
[2022-11-20] MEDS: ATORVASTATIN 20 MG TAB PO SCH (09:09)
[2022-11-20] MEDS: SACUBITRIL-VALSARTAN 24mg/26mg TAB PO SCH (09:09)
[2022-11-20] MEDS: ENOXAPARIN SOD 100 MG/1 ML SYRINGE SC SCH (09:11)
[2022-11-20 13:00] VITALS: BP 105/60
== END 2022-11-20 16:58 | disposition home or self-care (01) | DRG 254 ==
LOC: ER 05:43 → OVERFLOW 09:14 → CENTRAL 11-17 19:34 → TELE-CENTR 11-17 22:14
PROVIDERS: ADMIT Nurse Practitioner Family; ATTEND Student in an Organized Health Care Education/Training Program
DX: K42.0 Umbilical hernia with obstruction, without gangrene (principal); I11.0 Hypertensive heart disease with heart failure; J44.1 Chronic obstructive pulmonary disease with (acute) exacerbation; I50.42 Chronic combined systolic (congestive) and diastolic (congestive) heart failure; D72.829 Elevated white blood cell count, unspecified; R00.1 Bradycardia, unspecified; E66.9 Obesity, unspecified; E78.5 Hyperlipidemia, unspecified; I25.10 Atherosclerotic heart disease of native coronary artery without angina pectoris; M10.9 Gout, unspecified; M19.90 Unspecified osteoarthritis, unspecified site; Z20.822 Contact with and (suspected) exposure to COVID-19; I25.5 Ischemic cardiomyopathy; K21.9 Gastro-esophageal reflux disease without esophagitis; R73.03 Prediabetes; Z68.31 Body mass index [BMI] 31.0-31.9, adult; Z79.02 Long term (current) use of antithrombotics/antiplatelets; Z79.82 Long term (current) use of aspirin; Z80.0 Family history of malignant neoplasm of digestive organs; Z85.038 Personal history of other malignant neoplasm of large intestine; I25.2 Old myocardial infarction; Z86.711 Personal history of pulmonary embolism; Z86.718 Personal history of other venous thrombosis and embolism; Z87.01 Personal history of pneumonia (recurrent); Z91.199 Patient's noncompliance with other medical treatment and regimen due to unspecified reason; Z98.61 Coronary angioplasty status; Z59.00 Homelessness unspecified; Z63.4 Disappearance and death of family member; Z79.01 Long term (current) use of anticoagulants; Z82.49 Family history of ischemic heart disease and other diseases of the circulatory system; Z79.899 Other long term (current) drug therapy
CPT/HCPCS: 36415; 71045; 74176; 80053; 81001; 83036; 83605; 83880; 84484; 85025; 85610; 85730; 87426; 93005; 93970; 96361; 96365; G0378; J0696; J3490